=== PATIENT | female | born 1960 | race Caucasian/White ===

== ENCOUNTER → 2022-03-06 12:58 | Outpatient (CLI) | payer OTHER, SELFPAY ==
--- NOTE | ~2022-03-06 | DEXA_ITS ---
Bone Density Report Name: KARRIE MARTINEZ Age: 61 Sex: Female Ethnicity: White Date of : 1960 Indication: postmenopausal; screening for osteoporosis; height loss; hysterectomy; rheumatoid arthritis; Referring Provider: RADHA DIXON Study: Bone densitometry was performed. Exam Date: March 06, 2022 Accession number: [id number] Bone Density: Region BMD T-score Z-score Classification AP Spine (L1-L4) 1.117 0.6 2.0 Normal Femoral Neck (Left) 0.822 -0.2 1.0 Normal Total Hip (Left) 0.993 0.4 1.3 Normal Femoral Neck (Right) 0.828 -0.2 1.1 Normal Total Hip (Right) 0.974 0.3 1.2 Normal Total Hip Mean 0.984 0.4 1.3 Normal World Health Organization criteria for BMD impression classify patients as: Normal (T-score at or above -1.0), Osteopenia (T-score between -1.0 and -2.5), or Osteoporosis (T-score at or below -2.5). 10-year Fracture Risk: FRAX not reported because: All T-scores for Spine Total, Hip Total, Femoral Neck at or above -1.0 Clinical Information Provided by Patient: Has rheumatoid arthritis Has the following medical conditions: Hysterectomy, pre cancer (uterine) Patient maximum height was 66 Menopause Age: 32 No regular weight bearing exercise Drinks caffeinated beverages Onset of menses at age 14 Number of children 1 Impression: The patient has normal bone mass. Discussion: BONE DENSITY IS ABOVE THE MINIMUM DESIRABLE LEVEL AT ALL SKELETAL SITES TESTED. This patient?s bone mineral density is above the minimum desirable level (T-score -1.0 or better) at all sites measured. The patient should follow a healthful lifestyle (good nutrition with adequate calcium and vitamin D, and appropriate weight-bearing exercise). Follow-Up: Consider repeating this study in 5 years or sooner if there is some new clinical indication. Reported by: MASSIEL on 03/06/2022 1:29:00 PM. Reviewed, dictated and finalized at location [facility] JENKINS
== END ==
PROVIDERS: PCP Family Medicine; Visit Provider Physician Assistant
DX: Z78.0 Asymptomatic menopausal state (principal)
CPT/HCPCS: 77080

== ENCOUNTER → 2022-12-11 10:31 | Outpatient (CLI) | payer OTHER, SELFPAY ==
--- NOTE | ~2022-12-11 | MM_ITS ---
EXAMINATION: MM screening dhruv BI w miriam HISTORY: Screening TECHNIQUE: Craniocaudal and mediolateral oblique 3-D tomosynthesis images were obtained and synthetic 2-D images were generated. CAD analysis was submitted and interpreted. COMPARISON: No prior mammogram is available for comparison at this institution. BREAST PARENCHYMAL COMPOSITION: The breasts are extremely dense, which lowers the sensitivity of mamm ography FINDINGS: There are nodular asymmetries throughout both breasts which are obscured by fibroglandular tissue. No suspicious calcifications or discrete architectural distortion. IMPRESSION: 1. Bilateral diffuse nodular densities in both breasts. No discrete mass. 2. Recommend bilateral complete breast ultrasound. BI-RADS CATEGORY 0 - INCOMPLETE STUDY, NEED ADDITIONAL IMAGING EVALUATION. Reviewed, dictated and finalized at location A. MAKER
== END ==
PROVIDERS: PCP Family Medicine; Visit Provider Physician Assistant
DX: Z12.31 Encounter for screening mammogram for malignant neoplasm of breast (principal); R92.8 Other abnormal and inconclusive findings on diagnostic imaging of breast
CPT/HCPCS: 77063; 77067

== ENCOUNTER → 2023-08-26 13:02 | Outpatient (CLI) | payer OTHER, SELFPAY ==
--- NOTE | ~2023-08-26 | XR_ITS ---
AP and lateral views of the bilateral hips Clinical history: Rheumatoid arthritis Findings: No acute fracture or dislocation is seen. Osseous alignment is anatomic. Bilateral hip and SI joint spaces are preserved. Soft tissues are unremarkable. Impression: No significant abnormality is seen. Reviewed, dictated and finalized at [facility]. Impression: No significant abnormality is seen.
--- NOTE | ~2023-08-26 | XR_ITS ---
Left Shoulder Technique: AP and axillary views were obtained. Clinical History: Rheumatoid arthritis Findings: No fracture or dislocation is seen. Osseous alignment is anatomic. The glenohumeral and acr omioclavicular joint spaces are preserved. Soft tissues are unremarkable. Impression: Unremarkable left shoulder radiographs. Reviewed, dictated and finalized at [facility]. Impression: Unremarkable left shoulder radiographs.
--- NOTE | ~2023-08-26 | XR_ITS ---
Right Shoulder Technique: AP and axillary views were obtained. Clinical History: Rheumatoid arthritis Findings: No fracture or dislocation is seen. Osseous alignment is anatomic. The glenohumeral and acr omioclavicular joint spaces are preserved. Soft tissues are unremarkable. Impression: Unremarkable right shoulder radiographs. Reviewed, dictated and finalized at [facility]. Impression: Unremarkable right shoulder radiographs.
== END ==
PROVIDERS: PCP Physician Assistant Medical; Visit Provider Physician Assistant Medical
DX: M05.741 Rheumatoid arthritis with rheumatoid factor of right hand without organ or systems involvement (principal); M05.742 Rheumatoid arthritis with rheumatoid factor of left hand without organ or systems involvement; Z79.899 Other long term (current) drug therapy; M79.651 Pain in right thigh; M79.652 Pain in left thigh; M79.601 Pain in right arm; M79.602 Pain in left arm
CPT/HCPCS: 73030; 73521

== ENCOUNTER → 2024-01-03 16:23 | Outpatient (CLI) | payer OTHER, SELFPAY ==
--- NOTE | ~2024-01-03 | XR_ITS ---
XR hip BI 2V w AP pelvis DATE: 01/03/2024 16:46 INDICATION: Low back pain TECHNIQUE: AP pelvis. AP and lateral views of each hip. COMPARISON: None FINDINGS: Normal alignment at the pubic symphysis and sacroiliac joints. No pelvic fracture or bone d estruction. No fracture, dislocation, avascular necrosis or bone destruction of either hip. Hip joint spaces are symmetric and relatively preserved. IMPRESSION: No significant abnormality Reviewed, dictated and finalized at location B. SALES CONSULTANT IMPRESSION: No significant abnormality
--- NOTE | ~2024-01-03 | XR_ITS ---
XR lumbar spine 2-3V DATE: 01/03/2024 16:46 INDICATION: Low back pain TECHNIQUE: AP, lateral, coned lateral lumbosacral views COMPARISON: None FINDINGS: No alignment of the lumbar spine. Included lower thoracic and lumbar pedicles are intact. N o fracture or spondylolisthesis or bone destruction. Mild to moderate degenerative disc disease of the lumbar spine. The sacroiliac joints are intact.. IMPRESSION: Multilevel mild to moderate degenerative disc disease Reviewed, dictated and finalized at location B. ICAL GARMENT FITTER
== END ==
PROVIDERS: PCP Physician Assistant; Visit Provider Physician Assistant
DX: M54.50 Low back pain, unspecified (principal); M51.36 Other intervertebral disc degeneration, lumbar region
CPT/HCPCS: 72100; 73521

== ENCOUNTER → 2024-01-21 07:08 | Outpatient (CLI) | payer OTHER, SELFPAY ==
--- NOTE | ~2024-01-21 | MM_ITS ---
EXAMINATION: MM screening dhruv BI w miriam HISTORY: Screening TECHNIQUE: Craniocaudal and mediolateral oblique 3-D tomosynthesis images were obtained and synthetic 2-D images were generated. CAD analysis was submitted and interpreted. COMPARISON: Comparison to multiple prior studies sequentially, with oldest reviewed study dated 08/30. BREAST PARENCHYMAL COMPOSITION: Not dense: There are scattered areas of fibroglandular density. FINDINGS: There is no evidence of suspicious mass, calcification, or architectural distortion to sugg est malignancy in either breast. There has been no suspicious interval change. IMPRESSION: 1. No mammographic evidence of malignancy. 2. Recommend routine screening mammography in one year. BI-RADS Category 1: Negative Reviewed, dictated and finalized at location A. OR COMMISSARY AGENT
== END ==
PROVIDERS: PCP Physician Assistant; Visit Provider Physician Assistant
DX: Z12.31 Encounter for screening mammogram for malignant neoplasm of breast (principal)
CPT/HCPCS: 77063; 77067